=== PATIENT | female | born 2000 | race Caucasian/White ===

== ENCOUNTER 2019-04-30 09:50 | Emergency (ER) | payer OTHER ==
[2019-04-30] MEDS ORDERED: HYDROCODONE/ACETAMINOPHEN 5-325 MG TABLET PO ONE (10:28)
[2019-04-30] MEDS ORDERED: CYCLOBENZAPRINE HCL 10 MG TABLET PO ONE (10:28)
[2019-04-30] MEDS ORDERED: IBUPROFEN 800 MG TABLET PO ONE (10:28)
--- NOTE | 2019-04-30 10:33 | ER Document Report ---
HPI - HPI Time Seen by Provider: 04/30/19 10:18 Pain Level: 3 Context: Patient is a 18-year-old female who presents to the emergency department with a chief complaint of low back pain. Patient states around 630 this morning she was walking down her carpeted steps when she slipped. Patient's she states she fell on her lower back. Patient states she only slid down a few steps. 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 Patient states she has seen multiple doctors who cannot tell her because of the back pain. Patient states she originally had an x-ray but no other additional testing. Patient denies loss of bowel or bladder. Patient denies numbness or tingling to her lower extremities. Patient states she is having pain to the middle of her lower back as well as the right lower back. Patient states she did not hit her head or have a loss of consciousness. Patient reports her last menstrual cycle was 1 week ago. - REPRODUCTIVE Reproductive: DENIES: : Past Medical History - General Information source: Patient - Social History Smoking Status: Never Smoker Frequency of alcohol use: None Drug Abuse: None Lives with: Spouse/Significant other Family History: None - Past Medical History Cardiac Medical History: Reports: None Pulmonary Medical History: Reports: None EENT Medical History: Reports: None Neurological Medical History: Reports: None Endocrine Medical History: Reports: None Renal/ Medical History: Reports: None Malignancy Medical History: Reports: None GI Medical History: Reports: None Musculoskeletal Medical History: Reports Other - Chronic low back pain x 2 yrs Skin Medical History: Reports None Psychiatric Medical History: Reports: None Traumatic Medical History: Reports: None Infectious Medical History: Reports: None Surgical Hx: Negative Vertical Provider Document - CONSTITUTIONAL Agree With Documented VS: Yes Exam Limitations: No Limitations General Appearance: No Apparent Distress - HEENT HEENT: Atraumatic, Normal ENT Exam, Normocephalic, PERRLA - NECK Neck: Normal Inspection Notes: No cervical midline tenderness. - RESPIRATORY Respiratory: Breath Sounds Normal, No Respiratory Distress - CARDIOVASCULAR Cardiovascular: Regular Rate, Regular Rhythm - GI/ABDOMEN Gastrointestinal: Abdomen Soft, Abdomen Non-Tender, Normal Bowel Sounds - BACK Notes: There is no ecchymosis, abrasion, edema noted to the back. Patient does have lumbar midline tenderness with palpation as well as right lower back tenderness with palpation. No CVA tenderness. - NEURO Level of Consciousness: Awake, Alert, Appropriate - DERM Integumentary: Warm, No Rash Course - Re-evaluation Re-evalutation: 04/30/19 10:32 We will obtain an x-ray of the lower back as the patient did have a traumatic fall down the stairs this morning. I did inform the patient that if the imaging is negative this is probably an exacerbation of her chronic low back pain. Will treat with muscle relaxers and anti-inflammatories. Patient given strict return precautions. 04/30/19 12:34 Prior to discharge I did discuss the x-ray results with the patient. Patient is resting comfortably and in no acute distress. I did inform the patient that this is most likely a lumbar strain. Patient to take anti-inflammatories as well as a Flexeril. Patient aware not to drive on the Flexeril as this can make her drowsy. Patient to follow-up with her primary care physician and return for any worsening symptoms. - Vital Signs Vital signs: Temp Pulse Resp BP Pulse Ox 98.6 F 98 H 20 134/65 H 97 04/30/19 10:00 04/30/19 10:00 04/30/19 10:00 04/30/19 10:00 04/30/19 10:00 - Diagnostic Test Radiology reviewed: Reports reviewed Radiology results interpreted by me: 04/30/19 11:29 Lumbar Spine X-Ray 04/30/19 10:28 IMPRESSION: NORMAL 5 VIEW LUMBAR SPINE. Discharge - Discharge Clinical Impression: Low back pain Qualifiers: Chronicity: acute Back pain laterality: midline Sciatica presence: without sciatica Qualified Code(s): M54.5 - Low back pain Fall Qualifiers: Encounter type: initial encounter Qualified Code(s): W19.XXXA - Unspecified fall, initial encounter Condition: Stable Disposition: HOME, SELF-CARE Instructions: Ice Packs ([facility]), Low Back Pain ([facility]), Muscle Strain ([facility]), Warm Packs ([facility]) Additional Instructions: Today you were seen in the emergency department after a fall. It does appear that you have exacerbated your chronic low back pain. The treatment for this is anti-inflammatories as well as a muscle relaxer. I am prescribing you naproxen which is an anti-inflammatory. While taking this medication do not mix with other anti-inflammatory such as Aleve, Motrin, ibuprofen, etc. You may initially use cold packs to the area and after a few days switch to warm as this may help. Please follow-up with your primary care physician if you continue to have lower back pain. Please return to emergency department if you develop numbness or tingling to your lower extremities, inability to urinate, loss of bowel or bladder or any other concerning signs or symptoms. Your x-ray did not show any abnormalities that were concerning. Low Back Pain Three out of every four people will have an episode of disabling back pain during their lifetime. Most commonly the pain is due to straining of the muscles and ligaments in the low back. Usual treatment includes: (1) Rest on a firm surface. Avoid lying on your stomach. (2) Ice pack the painful area. After a few days, gentle heat may be used intermittently to relax the area, or ice packs can be continued. (3) Medication may be needed -- muscle relaxers and antiinflammatory medicines are commonly used. (4) As the back improves, exercises are prescribed to strengthen the back and abdominal muscles. Your doctor will advise you on the proper care for your back at each stage in your recovery. You may be better in a few days -- or healing may take several weeks. If new symptoms of a "herniated disc" (radiation of pain, numbness, or tingling down the back of the leg or weakness in the leg) occur, you should be re-examined. Further testing may be necessary. Prescriptions: Cyclobenzaprine HCl [Flexeril 10 mg Tablet] 10 mg PO TIDP PRN #15 tab PRN Reason: Naproxen 500 mg PO BID PRN #14 tablet PRN Reason: Forms: Return to Work
--- NOTE | 2019-04-30 11:14 | RADIOLOGY REPORT (SQ) ---
EXAM DESCRIPTION: L SPINE WHOLE COMPLETED DATE/TIME: 04/30/2019 10:59 am REASON FOR STUDY: fell down steps, lumbar spine tenderness COMPARISON: None. NUMBER OF VIEWS: Five views including obliques. TECHNIQUE: AP, lateral, oblique, and sacral radiographic images acquired of the lumbar spine. LIMITATIONS: None. FINDINGS: MINERALIZATION: Normal. SEGMENTATION: Normal. No transitional anatomy. ALIGNMENT: Normal. VERTEBRAE: Maintained height. No fracture or worrisome bone lesion. DISCS: Preserved height. No significant osteophytes or end plate irregularity. POSTERIOR ELEMENTS: Pedicles and facets are intact. No pars defect or posterior arch defects. HARDWARE: None in the spine. PARASPINAL SOFT TISSUES: Normal. PELVIS: Intact as visualized. No fractures or worrisome bone lesions. SI joints intact. OTHER: No other significant finding. IMPRESSION: NORMAL 5 VIEW LUMBAR SPINE. TECHNICAL DOCUMENTATION: JOB ID: [id number] [employer]- All Rights Reserved Reading location - IP/workstation name: [email or web address]
[2019-04-30 11:42] VITALS: BP 110/60
== END 2019-04-30 11:43 | disposition home or self-care (01) ==
LOC: ER 09:50
DX: M54.5 Low back pain (principal); W10.9XXA Fall (on) (from) unspecified stairs and steps, initial encounter
CPT/HCPCS: 72110